=== PATIENT | male | born 1975 | race Caucasian/White ===

== ENCOUNTER 2018-08-25 14:05 | Emergency (ER) | payer MEDICAID, SELFPAY ==
[2018-08-25 14:06] VITALS: BP 107/68; PULSE 86; RESP 18; TEMP 37.2; O2SAT 99; BMI 23.8
--- NOTE | 2018-08-25 16:03 | ED.DCSUM_ITS ---
- ER Visit Summary Date of Service: 08/25/18 Chief Complaint: Back pain History of Present Illness: The patient is a 42 M with chronic back pain noticed that usually he has radiation in his posterior side of his leg and now he has some paresthesia anterior side. He has no abdominal pain no inguinal pain no groin pain no urinary symptoms he has no nausea vomiting. He has no bowel or bladder compromise. He has no saddle anesthesia. He is able to ambulate in fact ambulates and walks quite a bit. He just wants to make sure that there is no other problems. Physical Examination: Not appear in acute distress. Abdomen soft and nontender no guarding or rebound Moves all extremities without any difficulty or pain Patient has normal patellar and Achilles reflexes. He has normal plantar flexion of both feet and normal dorsiflexion of both toes. He has no suprapubic pain or mass. Normal sensation over the anterior posterior part of his leg. Skin does not show any obvious rashes or lesions, no trauma. Alert oriented ?3 with no gross focal deficit Emergency Department Course and Treatment: Anterior thigh paresthesias, I doubt this is meralgia paresthetica, he has not obese and his belt is quite loose, he has a history of sciatica but at this time there is no obvious neurological compromise. He has a benign exam and no red flags on history. He will be discharged with Flexeril per his request. Disposition: Discharge stable condition Impression: Back pain This note was generated with [employer] dictation software. It may contain incorrect words, spelling, and punctuation that were not noted in review of the chart prior to signing ED Disposition - Plan for ED Patient: Chief Complaint: Back Referrals: Care Physician,No Primary [Primary Care Provider] -
--- NOTE | 2018-08-25 16:11 | ED.DEP ---
ED Disposition - Plan for ED Patient: Disposition: Home or Assisted Living Chief Complaint: Back Instructions: ED Sprain Strain Lumbar Prescriptions: Cyclobenzaprine [Flexeril] 10 mg PO TID PRN #20 tab PRN Reason: Muscle Spasm Referrals: Care Physician,No Primary [Primary Care Provider] - 3-5 Days
[2018-08-25 16:26] VITALS: BP 108/77; PULSE 62; RESP 17; O2SAT 97
[2018-08-25] MEDS: Ketorolac 30 MG/ML Syringe IM (16:28)
== END 2018-08-25 16:28 | disposition home or self-care (01) ==
PROVIDERS: Emergency Provider Emergency Medicine
DX: M54.9 Dorsalgia, unspecified (principal); G89.29 Other chronic pain; Z72.0 Tobacco use
CPT/HCPCS: 96372; 99282

== ENCOUNTER 2019-02-09 11:07 | Emergency (ER) | payer MEDICAID, SELFPAY ==
[2019-02-09 11:08] VITALS: BP 124/68; PULSE 101; RESP 16; TEMP 36.8; O2SAT 94; BMI 22.9
--- NOTE | 2019-02-09 12:32 | ED.VIS.GEN ---
History of Present Illness Chief Complaint: Back Informant: Patient Onset: Yesterday Context: Gradual Onset Timing: Continuous Current Severity: Severe Maximum Severity: Severe Worsened by: sitting, sometimes walking Relieved by: certain positions Associated Symptoms: radiation down LLE. no bowel or bladder dysfunction Narrative: Patient states he has a long-standing history for years of low back pain with left-sided sciatica. When symptoms get worse, he sometimes comes to the emergency department, he feels that need today. No new symptoms. Sometimes some tingling down to his foot. No recent injury. No heavy lifting. Dates he was doing lots of walking recently. Symptoms gradually worsened yesterday and are still worse this morning. States he used to be an addict and wants no narcotics. Flexeril has not helped in the past. Tried Tylenol and ibuprofen without help. Prior similar symptoms: Yes - sciatica - Past Medical History (1) Chronic back pain Status: Chronic Past Medical History - Allergies and Home Meds Allergies/Adverse Reactions: Allergies tramadol HCl [From Ultram] Allergy (Verified 02/09/19 11:08) Rash meloxicam [From Mobic] Adverse Reaction (Verified 02/09/19 11:08) Nausea Penicillins Adverse Reaction (Verified 02/09/19 11:08) Nausea Primary Care Physician: Doctor,Your [STAFF PHYSICIAN] - 1 Week if not improving Surgical History: cholecystectomy, - - reports chest surgery 9-10 for a valve or something that did not close. Smoking Status: Current every day smoker Drugs: None - Family History Maternal Family History: Reports: Heart Disease Sibling Family History: Reports: - - 3 brothers had heart disease Review of Systems General: Denies: Chills, Fever Musculoskeletal: Reports: Back pain, Extremity Pain. Denies: Swelling Neurological: Reports: Parasthesia. Denies: Headache, Weakness Physical Exam Vital Signs/Narrative: Vital Signs Temp Pulse Resp BP Pulse Ox 02/09/19 11:08 98.2 F 101 H 16 124/68 H 94 Inital Vital Signs reviewed: Yes General: Well nourished, Well developed, No Acute Distress Head: Normocephalic, Atraumatic Back: Normal Inspection. Negative for: CVA tenderness, Spinal tenderness Extremities: Nontender, No edema, - - Ipsilateral straight leg raise while sitting back pain but no radicular symptoms. Negative contralateral straight leg raise. Skin: Normal color, No rash, No Trauma Neurological: Alert, Oriented x3, Cranial nerves II-XII grossly intact, Normal Strength, Normal Sensation, Normal DTR Psychological: Normal affect, Normal Mood Diagnostic/Tx/Re-eval - Medical Decision Making Patient states he used to be in pain management no longer is. He was on gabapentin and it did help some. I am willing to put him on a 2-week course until he follows up. We will also try a short course of prednisone, given injection of Toradol here. He is comfortable with this plan. Additionally, he states he saw Dr. Moralez with orthopedics in the past, and was told based on his MRI and exam that surgery would be an option. However at the time it was inconvenient. He states he has not followed up again and I recommend doing so when he is able. He agrees. ED Disposition - Plan for ED Patient: Disposition: Home or Assisted Living Diagnosis: Acute exacerbation of chronic low back pain Instructions: ED Sciatica Prescriptions: Prednisone [Deltasone] 40 mg PO DAILY #10 tab Gabapentin [Neurontin] 300 mg PO TID 14 Days #39 cap Referrals: Doctor,Your [STAFF PHYSICIAN] - 1 Week if not improving
[2019-02-09] MEDS: Ketorolac 60 MG/2 ML Vial IM (12:41)
[2019-02-09] MEDS: predniSONE 20 MG Tablet 40 MG PO (12:42)
== END 2019-02-09 12:59 | disposition home or self-care (01) ==
LOC: ED 12:39
PROVIDERS: Emergency Provider Emergency Medicine
DX: G89.29 Other chronic pain (principal); M54.5 Low back pain; F17.200 Nicotine dependence, unspecified, uncomplicated; Z90.49 Acquired absence of other specified parts of digestive tract
CPT/HCPCS: 96372; 99282

== ENCOUNTER 2021-06-06 20:16 | Observation (INO) | payer MEDICAID, SELFPAY ==
[2021-06-06 20:17] VITALS: BP 108/67; PULSE 74; RESP 16; TEMP 36.7; O2SAT 98; BMI 20.9
--- NOTE | 2021-06-06 20:56 | CM.ED ---
CONRAD Note Referral Source: [employer] Referral Reason: RAMP program SW met with patient. Patient hakeem that his drug of choice is ice but he did heroin last night. Patient said that he is currently linked with [facility]. Patient said that his last use was last night and he used 'not much heroin. SW educated patient on the Ramp Program that it is a detox program. SW explained that belongings would be secured and locked and patient would not be able to have access to his phone and have no visitors. CONRAD explained that [facility] will follow up with patient. No further issues or needs at this time. Deandra TOVAR
[2021-06-06] MEDS: LORazepam 1 MG Tablet PO (21:58)
--- NOTE | 2021-06-06 22:12 | CM.ED ---
Addendum entered by Deandra Amaro 06/06/21 22:26: Addendum: Patient reports that he last used the previous night and used heroin. When asked how much heroin he used he said not much. Deandra TOVAR Original Note: CONRAD Note Referral Source: Substance Abuse Referral Reason: Substance Abuse Sw met with patient. He indicated his drug of choice is ice. He reports use of heroin also. He said that his last use was the previous night. Patient reports he is linked with [facility]. SW reviewed the rules of the RAMP program which include no phones, no visitors and items locked. CONRAD also noted that patient will need to sign a contract for the RAMP program. Patient verbalized understanding and agreement. He indicated he is in agreement with rules regarding the RAMP program. CONRAD called [facility] Treatment Navigator and spoke to Lela and made referral for patient. [facility] will follow up on 06/07/21 Plan: Ramp Program Deandra TOVAR
[2021-06-06 22:31] LABS: ALB/GLOB Ratio 0.8 RATIO (0.9-2.4); AST(SGOT) 14 U/L (15-37); Alanine Aminotransfer ALT/SGPT 21 U/L (16-61); Albumin, Serum 3.2 g/dL (3.2-5.0); Alkaline Phosphatase 104 U/L (45-117); Anion Gap 6 (5-15); BUN 17 mg/dL (7-18); BUN/Creat Ratio 21.5 RATIO (10-20); Calcium,Total 8.3 mg/dL (8.5-10.1); Chloride 108 mmol/L (98-107); Creatinine, Serum 0.79 mg/dL (0.70-1.30); EST Glomerular Filtration Rate 113 mL/min (>60); Est Glom Filt Rate - Afr Amer 137 mL/min (>60); Estimated Creatinine Clearance 117.97 ml/min; Globulin 3.8 g/dL (2.2-4.2); Glucose 103 mg/dL (74-106); Potassium 3.7 mmol/L (3.5-5.1); Sodium Level 138 mmol/L (136-145)
--- NOTE | 2021-06-06 22:39 | EDS_ITS ---
HPI History of Present Illness Chief Complaint: Substance Abuse Informant: patient Narrative Narrative: 45-year-old male presenting requesting detox from heroin. Patient also admits to methamphetamine use. He injects into his hands. His last use was yesterday. He is unsure how much he uses but has been using daily for several months. Denies other complaints. Prior similar symptoms: Yes Recent Illness/Hospitalization: No PFSH PFSH Medical History (Updated 06/06/21 @ 22:[address] Cathy Sullivan MD) Chronic pain Substance use Home Medications prednisone 40 mg PO DAILY #10 tab 02/09/19 [Rx Last Taken Unknown] Allergy/AdvReac Type Severity Reaction Status Date / Time tramadol HCl [From Ultram] Allergy Rash Verified 06/06/21 20:17 meloxicam [From Mobic] AdvReac Nausea Verified 06/06/21 20:17 Penicillins AdvReac Nausea Verified 06/06/21 20:17 Social History Smoking Status: Current every day smoker tobacco type: cigarettes ROS ROS ED Constitutional Constitutional ED: Denies fever(s) Eyes Eyes: Denies change in vision ENT ENT ED: Denies rhinorrhea or sore throat Cardiovascular Cardiovascular: Denies chest pain or palpitations Respiratory/Chest Respiratory/Chest: Denies cough or dyspnea Gastrointestinal Gastrointestinal: Denies abdominal pain, diarrhea, nausea or vomiting Genitourinary Genitourinary ED: Denies dysuria Musculoskeletal Musculoskeletal: Denies myalgias Integumentary Denies rash Neurologic Neurologic: Denies headache(s) Psychiatric Psychiatric: Denies suicidal thoughts EXAM Physical Exam Const Vital Signs: 06/06/21 20:17 Temperature 98.0 F Temperature Source Temporal Pulse Rate 74 Respiratory Rate 16 Blood Pressure 108/67 Blood Pressure Mean 80 Pulse Ox 98 Oxygen Delivery Method Room Air Positive well nourished and well developed General Appearance ED: well developed HEENT Reports normocephalic and head/scalp atraumatic Eyes PERRL and EOMs intact bilaterally Neck supple General: Negative for tenderness Chest Wall inspection of chest normal Resp normal respiratory effort and clear to auscultation bilaterally Cardio regular rate and regular rhythm GI non-tender and non-distended Palpation: soft; Negative for guarding or rebound tenderness present no CVA tenderness Extremity normal to inspection Neuro oriented x3 Sensorium / Orientation: alert Psych mental status grossly normal MDM MDM MDM Narrative Medical decision making narrative: Patient felt shaky and was given Ativan x1 in the emergency department. Will discuss with hospitalist for admission. Lab Data Attestation: I reviewed the patient's lab results. Labs: Laboratory Results - last 24 hr 06/06/21 06/06/21 21:35 21:35 Sodium 138 Potassium 3.7 Chloride 108 H Carbon Dioxide 24.0 Anion Gap 6 BUN 17 Creatinine 0.79 Estim Creat Clear Calc 117.97 Est GFR (MDRD) Af Amer 137 Est GFR (MDRD) Non-Af 113 BUN/Creatinine Ratio 21.5 H Glucose 103 Calcium 8.3 L Total Bilirubin 0.20 AST 14 L ALT 21 Alkaline Phosphatase 104 Total Protein 7.0 Albumin 3.2 Globulin 3.8 Albumin/Globulin Ratio 0.8 L Ethyl Alcohol 4.0 Discharge Plan Triage Chief Complaint: Substance Abuse ED Provider: Cathy Sullivan Dx/Rx/DC Orders Clinical Impression: Polysubstance abuse Prescriptions: No Action prednisone 20 MG tablet 40 mg PO DAILY Qty: 10 RF: 0 Primary Care Provider: David Harrison Referrals: David Harrison MD [Primary Care Provider] - Disposition Disposition: Acute Care Hospital [facility]
--- NOTE | 2021-06-06 23:14 | HP.PCM_ITS ---
Documented by User: Valeria Weathers NP-C 06/06/21 23:20 HPI - General General Date of Admission: 06/06/21 HPI Narrative STANFORD KING, is a 45 M who presents with desire to detox from opioids and methamphetamines. Patient states that he uses heroin daily and that he has a history of IV drug use however he currently snorts. Patient states that his last use was yesterday and is visibly tremorous. Patient also reports chills and nausea. Patient denies fever, chest pain, shortness of breath, diarrhea, vomiting, constipation. [facility] Medical History (Updated 06/06/21 @ 23:18 by Valeria Weathers NP-C) Chronic pain Substance use Home Medications prednisone 40 mg PO DAILY #10 tab 02/09/19 [Rx Last Taken Unknown] Allergy/AdvReac Type Severity Reaction Status Date / Time tramadol HCl [From Ultram] Allergy Rash Verified 06/06/21 20:17 meloxicam [From Mobic] AdvReac Nausea Verified 06/06/21 20:17 Penicillins AdvReac Nausea Verified 06/06/21 20:17 Family History (Updated 06/06/21 @ 23:16 by Valeria Weathers NP-C) Mother Hypertension Alcoholism Father Hypertension Prostate cancer no surgical history Social History (Updated 06/06/21 @ 23:16 by Valeria Weathers NP-C) Smoking Status: Current every day smoker tobacco type: cigarettes alcohol intake: former substance use type: heroin and methamphetamine ROS Constitutional Constitutional: Reports chills; Denies anorexia, change in weight, fatigue, fever(s) or weakness Cardiovascular Cardiovascular: Denies chest pain, edema or palpitations Respiratory/Chest Respiratory/Chest: Denies cough, shortness of breath at rest or shortness of breath with exertion Gastrointestinal Gastrointestinal: Reports nausea; Denies abdominal pain, constipation, diarrhea or vomiting Genitourinary Genitourinary: Denies dysuria Musculoskeletal Musculoskeletal: Denies back pain, extremity pain, joint pain or joint stiffness Integumentary Integumentary: Denies dry skin Neurologic Neurologic: Denies abnormal gait, abnormal speech, confusion, dizziness or focal weakness Psychiatric Psychiatric: Denies anxiety or depression Endocrine Endocrinology: Denies change in body appearance Vital Signs Vital Signs Vital Signs: 06/06/21 20:17 Temperature 98.0 F Temperature Source Temporal Pulse Rate 74 Respiratory Rate 16 Blood Pressure 108/67 Blood Pressure Mean 80 Pulse Ox 98 Oxygen Delivery Method Room Air Weight Weight: 154 lb 1.65 oz Body Mass Index (BMI) 20.9 Physical Exam Const alert and oriented x3 General Appearance: cooperative HEENT normocephalic and head/scalp atraumatic Eyes conjunctivae normal and no scleral icterus Neck supple and no JVD General: trachea midline Resp normal respiratory effort, normal air movement and clear to auscultation bilaterally Cardio regular rate, regular rhythm, S1 normal heart sound and S2 normal heart sound GI normal to inspection, nondistended, normoactive bowel sounds, soft to palpation and non-tender Extremity normal capillary refill and no clubbing, cyanosis or edema Skin General Skin Exam: no breakdown and turgor normal Lesions: no lesions Rashes: no rashes Neuro no focal motor deficits and no sensory deficits noted Speech: speech normal Motor Exam: general weakness Psych thought process normal and cooperative Appearance: appropriate Mood & Affect: flat affect Results Lab / Micro Data Result Diagrams: 06/06/21 21:35 06/06/21 21:35 Labs: Laboratory Results - last 24 hr 06/06/21 21:35: Sodium 138, Potassium 3.7, Chloride 108 H, Carbon Dioxide 24.0, Anion Gap 6, BUN 17, Creatinine 0.79, Estim Creat Clear Calc 117.97, Est GFR (MDRD) Af Amer 137, Est GFR (MDRD) Non-Af 113, BUN/Creatinine Ratio 21.5 H, Glucose 103, Calcium 8.3 L, Total Bilirubin 0.20, AST 14 L, ALT 21, Alkaline Phosphatase 104, Total Protein 7.0, Albumin 3.2, Globulin 3.8, Albumin/Globulin Ratio 0.8 L 06/06/21 21:35: Ethyl Alcohol 4.0 Assessment & Plan Assessment/Plan (1) Polysubstance abuse: PLAN: 1. Polysubstance abuse -Admit to medical surgical as part of ramp program -Buprenorphine taper ordered along with supportive medications -Case management consulted for coordination with 180 for outpatient follow-up -Vital signs per protocol -CBC and BMP in a.m. -Regular diet ordered 2. Tobacco abuse -Inpatient smoking cessation ordered -Nicotine patch ordered DVT prophylaxis-no pharmacological prophylaxis indicated, encourage ambulation This patient was seen by AKIN Lewis under the supervision of Dr. Shane ramires Documented by User: Dr. Ruben Arteaga MD 06/07/21 00:18 HPI - General General Date of Admission: 06/06/21 [facility] Medical History (Updated 06/06/21 @ 23:18 by Valeria Weahters NP-C) Chronic pain Substance use Home Medications prednisone 40 mg PO DAILY #10 tab 02/09/19 [Rx Last Taken Unknown] Allergy/AdvReac Type Severity Reaction Status Date / Time tramadol HCl [From Ultram] Allergy Rash Verified 06/06/21 20:17 meloxicam [From Mobic] AdvReac Nausea Verified 06/06/21 20:17 Penicillins AdvReac Nausea Verified 06/06/21 20:17 Family History (Updated 06/06/21 @ 23:16 by MIAN LewisC) Mother Hypertension Alcoholism Father Hypertension Prostate cancer Social History (Updated 06/06/21 @ 23:16 by Valeria Weathers NP-C) Smoking Status: Current every day smoker tobacco type: cigarettes alcohol intake: former substance use type: heroin and methamphetamine Results Lab / Micro Data Result Diagrams: 06/06/21 21:35 06/06/21 21:35 Charges/Coding Addendum Addendum: Patient was seen and examined independently. I agree with assessment and plan by MIAN LewisC Patient is a 45-year-old male with a significant history of tobacco abuse; and drug abuse who is here for detoxification. Patient drug of choice is heroin and methamphetamine. His snorts about 20 g of heroin per day. Reportedly he began using about 3 months ago. Last time he used was the night before his presentation. He reports withdrawal symptoms of restless leg; muscle aches; nausea; and fatigue. He shoots methamphetamine. Last time he used methamphetamine was about a week ago. He shoots about $20 of methamphetamine per day. Reportedly he began using methamphetamine about 4 months ago. Physical exam: General: Well-nourished, well-developed, no acute distress Head: Normocephalic, atraumatic, no tenderness Eyes: PERRLA, EOMI ENT, no trauma, moist mucous membranes, no rhinorrhea Neck: Nontender, full range of motion, no spinal tenderness, deformities, step- off CVS: Regular rate and rhythm Respiratory no acute distress, clear to auscultation bilaterally, chest wall nontender, no wheezing Abdomen: Soft, nontender, nondistended, normal bowel sounds, no masses : Deferred Extremities: Nontender full range of motion, no trauma Skin: Normal color, no trauma, abrasions Neuro: Alert, oriented, cranial nerves II through XII grossly intact. The patient is a 45 year old M with a significant history drug abuse; and tobacco abuse who presents emergency department with help with detoxification Opioid dependence and withdrawal Patient be started on Subutex and other adjunctive medications: Gabapentin as needed; dicyclomine as needed; Vistaril as needed; methocarbamol as needed; clonidine as needed; Imodium as needed; trazodone as needed and Zofran as needed. Monitor COWS and CINA score Methamphetamine abuse Counseled Clinical monitoring. Tobacco abuse Counseled Nicotine patch prescribed. DVT prophylaxis Low risk Encourage to ambulate Visit Charges Inpatient E&M: 07775 Init Hosp L3
[2021-06-06 23:58] VITALS: BP 128/83; PULSE 83; RESP 18; TEMP 36.2; O2SAT 100
[2021-06-07 00:22] VITALS: BP 121/85; PULSE 75; RESP 18; TEMP 36.6; O2SAT 100
[2021-06-07 00:25] VITALS: BMI 20.8
[2021-06-07 01:08] LABS: Amphetamine Urine VISTA POSITIVE (<1000 ng/mL); Barbiturate Urine VISTA NEGATIVE (< 200 ng/mL); Benzodiazepine Urine VISTA NEGATIVE (< 200 ng/mL); Cocaine Urine VISTA NEGATIVE (< 300 ng/mL); Ecstacy Urine VISTA NEGATIVE (< 500 ng/mL); Methadone Urine VISTA NEGATIVE (< 300 ng/mL); PCP Urine VISTA NEGATIVE (< 25 ng/mL); THC Urine VISTA NEGATIVE (< 50 ng/mL); Vista UDS pH Range 7
[2021-06-07] MEDS: hydrOXYzine PAM 25 MG Capsule 50 MG PO ×3 (01:56→22:28)
[2021-06-07] MEDS: Dicyclomine 10 MG Capsule 20 MG PO (01:56)
[2021-06-07] MEDS: cloNIDine HCl 0.1 MG Tablet PO ×2 (01:56→22:28)
[2021-06-07] MEDS: Methocarbamol 750 MG Tablet 1500 MG PO ×3 (01:56→22:29)
[2021-06-07] MEDS: Buprenorphine HCl 2 MG TAB.SUBL SL ×3 (01:56→17:41)
[2021-06-07] MEDS: Gabapentin 300 MG Capsule PO (09:13)
--- NOTE | 2021-06-07 10:32 | PN.HOSP_ITS ---
Subjective Subjective Doing well, no issues overnight. CINA of a 6 this morning Objective Data Objective Data Vital Signs: Vital Signs Temp Pulse Resp BP Pulse Ox 97.8 F 75 18 121/85 H 100 06/07/21 00:22 06/07/21 00:22 06/07/21 00:22 06/07/21 00:22 06/07/21 00:22 Oxygen Delivery Method Room Air Weight: 154 lb 1.65 oz Body Mass Index (BMI) 20.8 Intake & Output: Intake and Output for Last 24 Hours 06/06/21 06/07/21 06/08/21 03:59 03:59 03:59 Intake Total 350 / 350 Output Total 875 / 875 Balance -525 / -525 Lab / Micro Data Result Diagrams: 06/06/21 21:35 06/06/21 21:35 Labs: Laboratory Results - last 24 hr 06/06/21 21:35: Sodium 138, Potassium 3.7, Chloride 108 H, Carbon Dioxide 24.0, Anion Gap 6, BUN 17, Creatinine 0.79, Estim Creat Clear Calc 117.97, Est GFR (MDRD) Af Amer 137, Est GFR (MDRD) Non-Af 113, BUN/Creatinine Ratio 21.5 H, Glucose 103, Calcium 8.3 L, Total Bilirubin 0.20, AST 14 L, ALT 21, Alkaline Phosphatase 104, Total Protein 7.0, Albumin 3.2, Globulin 3.8, Albumin/Globulin Ratio 0.8 L 06/06/21 21:35: Ethyl Alcohol 4.0 06/07/21 00:51: Urine Opiates Screen NEGATIVE, Urine Methadone Screen NEGATIVE, Ur Barbiturates Screen NEGATIVE, Ur Phencyclidine Scrn NEGATIVE, Ur Amphetamines Screen POSITIVE H, U Methamphetamin-MDMA NEGATIVE, U Benzodiazepines Scrn NEGAT SAMUEL, Urine Cocaine Screen NEGATIVE, U Cannabinoids Screen NEGATIVE, Ur Drug Screen Comment Physical Exam Const alert, oriented x3 and no apparent distress General Appearance: cooperative HEENT normocephalic and moist oral mucous membranes Eyes PERRL, EOMs intact bilaterally and conjunctivae normal Neck supple and no JVD Resp normal respiratory effort, no retractions, no use of accessory muscles and clear to auscultation bilaterally Auscultation: Negative for crackles, rales, rhonchi or wheezes Cardio regular rate, regular rhythm, S1 normal heart sound, S2 normal heart sound and no murmurs GI soft to palpation, non-tender and non-distended; Negative for hepatosplenomegaly Extremity no clubbing, cyanosis or edema Skin no rashes or lesions noted Neuro no focal motor deficits and no sensory deficits noted Psych affect normal Appearance: appropriate Assessment & Plan Assessment/Plan (1) Polysubstance abuse: PLAN: 1. Opiate withdrawal with polysubstance abuse with methamphetamines/tobacco abuse -Continue with the opiate withdrawal protocol -Follow-up with 180 as an outpatient -Continue with nicotine patch -Counseled on cessation DVT: Ambulation Charges/Coding Visit Charges Inpatient E&M: 78103 Subs Hosp L2
[2021-06-07 13:14] VITALS: BP 106/73; PULSE 88; RESP 16; TEMP 37; O2SAT 98
[2021-06-07 17:12] VITALS: BP 115/75; PULSE 70; RESP 18; TEMP 36.8; O2SAT 98
[2021-06-07 22:18] VITALS: BP 110/77; PULSE 78; RESP 18; TEMP 36.5; O2SAT 94
[2021-06-07] MEDS: traZODone 100 MG Tablet PO (22:28)
[2021-06-07] MEDS: Acetaminophen 325 MG Tablet 650 MG PO (22:29)
[2021-06-08 02:13] VITALS: BP 114/58; PULSE 73; RESP 16; TEMP 37.4; O2SAT 94
[2021-06-08] MEDS: Buprenorphine HCl 2 MG TAB.SUBL SL ×3 (02:16→17:44)
[2021-06-08 07:57] VITALS: O2SAT 94
--- NOTE | 2021-06-08 09:57 | ADDICTION ---
This parts data writer met with PT to conduct ASAM, MSE, DUDIT assessments and to plan for d/c. All assessments completed. PT plans to f/u with his counselor, Isa, at [facility] post d/c and refused coordination noting that I can do it myself. PT did not report any need for transportation assistance.
[2021-06-08] MEDS: Methocarbamol 750 MG Tablet 1500 MG PO ×2 (10:23→20:26)
[2021-06-08] MEDS: Gabapentin 300 MG Capsule PO ×2 (10:23→17:53)
[2021-06-08 10:30] VITALS: BP 92/66; PULSE 78; RESP 16; TEMP 36.6; O2SAT 100
--- NOTE | 2021-06-08 10:46 | PCM.PN.HOSP ---
Subjective Subjective No issues overnight. Cina scores of 1 Objective Data Objective Data Vital Signs: Vital Signs Temp Pulse Resp BP Pulse Ox 97.9 F 78 16 92/66 100 06/08/21 10:30 06/08/21 10:30 06/08/21 10:30 06/08/21 10:30 06/08/21 10:30 Oxygen Delivery Method Room Air Weight: 154 lb 1.65 oz Body Mass Index (BMI) 20.8 Intake & Output: Intake and Output for Last 24 Hours 06/07/21 06/08/21 06/09/21 03:59 03:59 03:59 Intake Total 2650 / 2650 Output Total 875 / 875 Balance 1775 / 1775 Lab / Micro Data Result Diagrams: 06/06/21 21:35 06/06/21 21:35 Physical Exam Const alert, oriented x3 and no apparent distress General Appearance: cooperative HEENT normocephalic and moist oral mucous membranes Eyes PERRL, EOMs intact bilaterally and conjunctivae normal Neck supple and no JVD Resp normal respiratory effort, no retractions, no use of accessory muscles and clear to auscultation bilaterally Auscultation: Negative for crackles, rales, rhonchi or wheezes Cardio regular rate, regular rhythm, S1 normal heart sound, S2 normal heart sound and no murmurs GI soft to palpation, non-tender and non-distended; Negative for hepatosplenomegaly Extremity no clubbing, cyanosis or edema Skin no rashes or lesions noted Neuro no focal motor deficits and no sensory deficits noted Psych affect normal Appearance: appropriate Assessment & Plan Assessment/Plan (1) Polysubstance abuse: PLAN: 1. Opiate withdrawal with polysubstance abuse with methamphetamines/tobacco abuse -Continue with the opiate withdrawal protocol -Follow-up with 180 as an outpatient -Continue with nicotine patch -Counseled on cessation DVT: Ambulation Charges/Coding Visit Charges Inpatient E&M: 31642 Subs Hosp L2
[2021-06-08] MEDS: Ibuprofen 400 MG Tablet PO (13:52)
[2021-06-08 13:56] VITALS: BP 97/67; PULSE 84; RESP 16; TEMP 36.8; O2SAT 94
[2021-06-08] MEDS: traZODone 100 MG Tablet PO (20:27)
[2021-06-08 20:36] VITALS: BP 112/67; PULSE 87; RESP 16; TEMP 37.4; O2SAT 96
[2021-06-09] MEDS: Buprenorphine HCl 2 MG TAB.SUBL SL (01:56)
[2021-06-09] MEDS: Ibuprofen 400 MG Tablet PO ×2 (01:58→10:36)
[2021-06-09 02:04] VITALS: BP 107/66; PULSE 83; RESP 16; TEMP 36.8; O2SAT 98
--- NOTE | 2021-06-09 07:19 | PCM.DC ---
Discharge Instructions Diet Discharge Diet: No restrictions Activity Discharge Activity: Return to Normal Activity Dressing / Incision Call your doctor if you observe: Fever of 101 or Higher, Shortness of breath, Dizziness, Swelling in the ankles, Chest pain and Increased palpitations (irregular heartbeat) Follow Up Care Test Results: Test results from this visit will be discussed in further detail at your follow-up appointment, if applicable. Discharge Plan Admission Admit Date/Time: 06/06/21 23:12 Attending Provider: Morales Haque Primary Care Provider: David Harrison Discharge Orders/Prescriptions Prescriptions: Discontinued prednisone 20 MG tablet 40 mg PO DAILY Qty: 10 RF: 0 Referrals / Follow Up: David Harrison MD [Primary Care Provider] - Within 2 Weeks Disposition Disposition (needs filled in before D/C Order can be placed): Home, Self Care
--- NOTE | 2021-06-09 07:22 | PCM.DC.SUM ---
Providers Date of Admission: 06/06/21 Primary Care Physician: David Harrison MD Reason For Visit: OPIOID DETOX Diagnosis Discharge Diagnosis (1) Polysubstance abuse: Status: Acute Code(s): F19.10 - Other psychoactive substance abuse, uncomplicated Hospital Course Operations None Procedures None Summary of Care Provided Minutes Spent on Discharge: 35 Hospital Course: Per HPI: STANFORD KING, is a 45 M who presents with desire to detox from opioids and methamphetamines. Patient states that he uses heroin daily and that he has a history of IV drug use however he currently snorts. Patient states that his last use was yesterday and is visibly tremorous. Patient also reports chills and nausea. Patient denies fever, chest pain, shortness of breath, diarrhea, vomiting, constipation. Hospital course: 1. Opiate withdrawal with polysubstance abuse with methamphetamines/tobacco [id number]-old male presented to the hospital requesting detox from opiates methamphetamines. He uses daily heroin and was placed on the Suboxone taper. He has tolerated this very well and met with [facility] yesterday and wants to continue to follow-up with his counselor at [facility]. He does not want to go to residential treatment and he did not need any other assistance from them other than the appointment as an outpatient. I discussed with him the plan for discharge today and he expressed understanding of the risk and benefits of going home and would like to go home today. Physical Exam Const alert, oriented x3 and no apparent distress General Appearance: cooperative HEENT normocephalic, head/scalp atraumatic and moist oral mucous membranes Eyes PERRL, EOMs intact bilaterally and conjunctivae normal Neck supple and no JVD Resp normal respiratory effort, no retractions, no use of accessory muscles and clear to auscultation bilaterally Auscultation: Negative for crackles, rales, rhonchi or wheezes Cardio regular rate, regular rhythm, S1 normal heart sound, S2 normal heart sound and no murmurs GI soft to palpation, non-tender and non-distended; Negative for hepatosplenomegaly Extremity no clubbing, cyanosis or edema Skin no rashes or lesions noted Neuro no focal motor deficits and no sensory deficits noted Psych affect normal Appearance: appropriate Weight / BMI Weight Weight: 154 lb 1.65 oz Body Mass Index (BMI) 20.8 ABG / Lab / Microbiology Data Result Diagrams: 06/06/21 21:35 06/06/21 21:35 D/C Instructions Discharge Diet: No restrictions Call your doctor if you observe: Fever of 101 or Higher, Shortness of breath, Dizziness, Swelling in the ankles, Chest pain and Increased palpitations (irregular heartbeat) Meaningful Use Info Meaningful Use Diagnoses (Choose all that apply): None applicable Discharge Plan Admission Admit Date/Time: 06/06/21 23:12 Attending Provider: Morales Haque Primary Care Provider: David Harrison Discharge Orders/Prescriptions Prescriptions: Discontinued prednisone 20 MG tablet 40 mg PO DAILY Qty: 10 RF: 0 Referrals / Follow Up: David Harrison MD [Primary Care Provider] - Within 2 Weeks Disposition Disposition (needs filled in before D/C Order can be placed): Home, Self Care Charges/Coding Visit Charges Inpatient E&M: 91850 Disch Hosp
[2021-06-09 07:54] VITALS: O2SAT 94
[2021-06-09 10:00] VITALS: BP 98/68; PULSE 80; RESP 16; TEMP 36.7; O2SAT 98
== END 2021-06-09 10:42 | disposition home or self-care (01) ==
LOC: ED 22:41 → MS3 06-07 00:11
PROVIDERS: Admitting Provider Hospitalist; Emergency Provider Emergency Medicine; PCP Family Medicine; Visit Provider Family Medicine
DX: F11.23 Opioid dependence with withdrawal (principal); F15.90 Other stimulant use, unspecified, uncomplicated; F17.210 Nicotine dependence, cigarettes, uncomplicated
CPT/HCPCS: 80053; 80307; 82077; 99283; H0012

== ENCOUNTER 2021-07-22 20:36 | Emergency (ER) | payer MEDICAID, SELFPAY ==
[2021-07-22 20:37] VITALS: BP 141/99; PULSE 111; RESP 20; TEMP 36.7; O2SAT 98; BMI 21.0
--- NOTE | 2021-07-22 20:44 | ED.RN ---
PT REQUESTING TO LEAVE. DR KRISHNA NOTIFIED
--- NOTE | 2021-07-22 20:46 | ED.RN ---
PT STATES I'M LEAVING. PT WALKED OUT OF THE DEPARTMENT
== END 2021-07-22 20:46 ==
LOC: ED 21:14
PROVIDERS: PCP Family Medicine
DX: T65.91XA Toxic effect of unspecified substance, accidental (unintentional), initial encounter (principal); Y92.9 Unspecified place or not applicable
CPT/HCPCS: 99283

== ENCOUNTER 2021-10-01 01:18 | Emergency (ER) | payer MEDICAID, SELFPAY ==
[2021-10-01 01:18] VITALS: BP 137/99; PULSE 84; RESP 16; TEMP 37.2; O2SAT 98; BMI 21.7
--- NOTE | 2021-10-01 01:38 | EX.ED.DYSGE1 ---
HPI History of Present Illness Chief Complaint: Overdose Narrative Narrative: Patient is a 45-year-old male with past medical history of drug abuse. Reportedly he did methamphetamines today around 1 or 2 PM at which time he inadvertently overdose and EMS was called. This evening reportedly patient overdosed once again and EMS was called secondary to this. EMS states when they arrived patient was breathing but was obtunded and they gave him Narcan and his symptoms resolved. Upon arrival to the hospital patient is awake and alert and he admits to the methamphetamine from earlier today but denies any narcotic use. He states otherwise he feels tired at this time but has no homicidal or suicidal ideation and states that his drug use today was simply an attempt to get high. [facility] Medical History Chronic pain Smoker Substance use Home Medications NK 07/22/21 [History Last Taken Unknown] Allergy/AdvReac Type Severity Reaction Status Date / Time Penicillins Allergy PT UNSURE Verified 10/01/21 01:24 OF REACTION tramadol HCl [From Ultram] Allergy Rash Verified 10/01/21 01:24 meloxicam [From Mobic] AdvReac Nausea Verified 10/01/21 01:24 Family History (Updated 06/06/21 @ 23:16 by AKIN Lewis) Mother Hypertension Alcoholism Father Hypertension Prostate cancer Social History (Updated 06/06/21 @ 23:16 by Valeria Weathers NP-C) Smoking Status: Current every day smoker tobacco type: cigarettes alcohol intake: former substance use type: heroin and methamphetamine ROS ROS ED Constitutional Constitutional ED: Denies chills or fever(s) ENT ENT ED: Denies sore throat Cardiovascular Cardiovascular: Denies chest pain Respiratory/Chest Respiratory/Chest: Denies cough or dyspnea Gastrointestinal Gastrointestinal: Denies abdominal pain, diarrhea, nausea or vomiting Genitourinary Genitourinary ED: Denies dysuria Musculoskeletal Musculoskeletal: Denies myalgias Integumentary Denies rash Neurologic Neurologic: Denies headache(s) Psychiatric Psychiatric: Denies suicidal ideation or suicidal thoughts Hematologic/Lymphatic Hematologic/Lymphatic: Denies easy bleeding or easy bruising EXAM Physical Exam Const Vital Signs: 10/01/21 01:18 Temperature 99 F Temperature Source Temporal Pulse Rate 84 Respiratory Rate 16 Blood Pressure 137/99 H Blood Pressure Mean 111 Pulse Ox 98 Oxygen Delivery Method Room Air Positive well nourished and well developed General Appearance ED: well developed HEENT Reports moist mucous membranes HEENT Narrative: No tongue or cheek biting noted multiple dental caries noted consistent with methamphetamine use Eyes EOMs intact bilaterally Eyes Narrative: Pupils are midpoint and slightly sluggish to respond Neck supple Resp normal respiratory effort and clear to auscultation bilaterally Cardio regular rhythm Rate: tachycardic GI non-tender and non-distended GI Narrative: Bowel sounds are hypoactive Palpation: soft Extremity normal to inspection Neuro oriented x3 and CN's II-XII intact bilaterally Sensorium / Orientation: alert Psych mental status grossly normal Psych Narrative: No homicidal or suicidal ideation Skin no rashes or lesions noted MDM MDM MDM Narrative Medical decision making narrative: Patient presented to the ER awake and alert in no acute distress. His history and report of symptoms resolved with Narcan is consistent with an opioid overdose. He denied any homicidal or suicidal ideation. We discussed watching the patient for 30 minutes to an hour to make sure that once the Narcan wore off he would not relapse and return to altered mental status with difficulty breathing. Patient states he does not want to stay in the hospital any longer and he feels perfectly fine and with this decided to leave the hospital Discharge Plan Triage Chief Complaint: Overdose ED Provider: Israel Hamilton Dx/Rx/DC Orders Clinical Impression: Opioid overdose Instructions: ED Overdose, Opiate Prescriptions: No Action NK RF: 0 Primary Care Provider: David Harrison Referrals: David Harrison MD [Primary Care Provider] - Disposition Disposition: Elopement
[2021-10-01] MEDS: Acetaminophen 500 MG Tablet 1000 MG PO (01:39)
--- NOTE | 2021-10-01 01:39 | ED.RN ---
PT TOOK THE TYLENOL AND STATED HE WAS HUNGRY AND TIRED AND GOING HOME. EXPLAINED HE COULD GO HOME AND THE NARCAN WOULD WEAR OFF AND HE WOULD STOP BREATHING AND . PT STATES HE UNDERSTOOD THAT BUT HE WAS GOING HOME. PT CONTINUED TO DENY USING DRUG AND FEELS THAT NONE OF THIS WAS MAKING [place] SENSE. PHYSICIAN MADE AWARE AND PT TALKED WITH PHYSICIAN AND AGAIN DECIDED WAS LEAVING REGARDLESS TO RISK OF .
== END 2021-10-01 01:50 | disposition left against medical advice (07) ==
LOC: ED 01:48
PROVIDERS: Emergency Provider Emergency Medicine; PCP Family Medicine
DX: T40.2X1A Poisoning by other opioids, accidental (unintentional), initial encounter (principal); F17.210 Nicotine dependence, cigarettes, uncomplicated; G89.29 Other chronic pain; Z79.1 Long term (current) use of non-steroidal anti-inflammatories (NSAID)
CPT/HCPCS: 99283

== ENCOUNTER 2021-12-29 12:05 | Emergency (ER) | payer MEDICAID, SELFPAY ==
[2021-12-29 12:06] VITALS: BP 131/102; PULSE 107; RESP 15; TEMP 36.9; BMI 20.8
[2021-12-29 12:10] VITALS: BP 131/102; PULSE 105; RESP 16; O2SAT 97
--- NOTE | 2021-12-29 12:26 | EKG12_ITS ---
Test Reason : OVERDOSE Blood Pressure : / mmHG Vent. Rate : 092 BPM Atrial Rate : 092 BPM P-R Int : 098 ms QRS Dur : 102 ms QT Int : 406 ms P-R-T Axes : 076 042 045 degrees QTc Int : 502 ms Sinus rhythm with sinus arrhythmia with short CO Incomplete right bundle branch block Prolonged QT Abnormal ECG Confirmed by MORENA OSORIO, BETITO ([id number]), art editor ROBERTH WALLACE ([id number]) on 01/02/2022 6:56:36 AM Referred By: EDIS Confirmed By:BETITO BERG MD
--- NOTE | 2021-12-29 12:27 | EX.ED.DYSGE1 ---
HPI History of Present Illness Chief Complaint: Overdose Narrative Narrative: Patient presents via EMS with possible overdose. History and physical is limited secondary to patient's condition. He is not forthcoming with some of his answers/responses and is mumbling. It was reported by EMS, that he was found in the bathroom by his sister unresponsive. He states that he was in the bathroom trying to take Aleve for his back pain. He admitted to the RN that he took possibly methamphetamines. When I asked him if he had ingested other substances he states I do not know. He appears restless and mildly agitated. PFSH PFSH Medical History Chronic pain Smoker Substance use Home Medications NK 07/22/21 [History Last Taken Unknown] Allergy/AdvReac Type Severity Reaction Status Date / Time Penicillins Allergy PT UNSURE Verified 10/01/21 01:24 OF REACTION tramadol HCl [From Ultram] Allergy Rash Verified 10/01/21 01:24 meloxicam [From Mobic] AdvReac Nausea Verified 10/01/21 01:24 Family History Mother Hypertension Alcoholism Father Hypertension Prostate cancer Social History Smoking Status: Current every day smoker tobacco type: cigarettes alcohol intake: former substance use type: heroin and methamphetamine ROS ROS ED ROS Narrative Unable to obtain fully secondary to patient being uncooperative/mental status Review of Systems ROS Unobtainable: due to mental status EXAM Physical Exam Narrative Exam Narrative: Afebrile. Vital signs noted. HEENT: Normocephalic. Atraumatic. PERRL, EOMI. Neck soft and supple. No point tenderness or step off. Cardiovascular: Positive tachycardia no murmurs, rubs, or gallops appreciated. Respiratory: No tachypnea. Lungs clear to auscultation bilaterally. Gastrointestinal: Abdomen soft, nontender, with normoactive bowel sounds. No rebound or guarding. Neurological: Awake. Alert. Nonfocal, nonlateralizing. Skin: No rash. Normal color. No pallor. Musculoskeletal: No pedal edema. Full range of motion extremities. Psychiatric: Restless, agitated, writhing around on the bed. Const Vital Signs: 12/29/21 12:06 12/29/21 12:10 12/29/21 13:05 Temperature 98.4 F Temperature Source Temporal Pulse Rate 107 H 105 H 78 Respiratory Rate 15 16 18 Blood Pressure 131/102 H 131/102 H 126/78 H Blood Pressure Mean 111 111 94 Pulse Ox 97 97 Oxygen Delivery Method Room Air Room Air 12/29/21 14:05 Temperature Temperature Source Pulse Rate 88 Respiratory Rate 16 Blood Pressure 132/78 H Blood Pressure Mean 96 Pulse Ox 98 Oxygen Delivery Method Room Air MDM MDM MDM Narrative Medical decision making narrative: Psychiatric work-up was pursued. EKG demonstrates normal sinus rhythm at 92 bpm with sinus arrhythmia but no acute ST changes. His urine for drugs of abuse is positive for amphetamines and methamphetamines. It is negative for opiates. Patient is declining blood work. He states that he admittedly used methamphetamines recently because of his birthday which was yesterday. He had been on the road to recovery. He denied any suicidal ideation. He states that he suffers from insomnia and must of fallen asleep. I did speak with his sister with his permission over the phone while the patient was present. She states that he was taking a long time in the bathroom and when she called EMS, it took him 15 minutes to pull up his pants. He was groggy. At this point in time, as the patient is refusing blood work, he was told that there is a limited amount of work-up which can perform to see the cause of his syncope. He still refuses. I feel he has a capacity to sign out AGAINST MEDICAL ADVICE. He was told that he can return at any time. Currently he is awake, alert, oriented, and ambulatory. He will be signed out AGAINST MEDICAL ADVICE. He is in stable condition. Lab Data Labs: Laboratory Results - last 24 hr 12/29/21 12:50 Urine Opiates Screen NEGATIVE Urine Methadone Screen NEGATIVE Ur Barbiturates Screen NEGATIVE Ur Phencyclidine Scrn NEGATIVE Ur Amphetamines Screen POSITIVE H U Methamphetamin-MDMA POSITIVE H U Benzodiazepines Scrn NEGATIVE Urine Cocaine Screen NEGATIVE U Cannabinoids Screen NEGATIVE Ur Drug Screen Comment Discharge Plan Triage Chief Complaint: Overdose ED Provider: Anthony Alcocer Dx/Rx/DC Orders Clinical Impression: Syncope, Methamphetamine abuse, Left against medical advice Instructions: Causes of Syncope, ED Fainting, Uncertain Cause Prescriptions: No Action NK RF: 0 Primary Care Provider: David Harrison Referrals: David Harrison MD [Primary Care Provider] - 3-5 Days Disposition Disposition: Against Medical Advice
[2021-12-29 13:05] VITALS: BP 126/78; PULSE 78; RESP 18; O2SAT 97
[2021-12-29 13:10] LABS: Amphetamine Urine VISTA POSITIVE (<1000 ng/mL); Barbiturate Urine VISTA NEGATIVE (< 200 ng/mL); Benzodiazepine Urine VISTA NEGATIVE (< 200 ng/mL); Cocaine Urine VISTA NEGATIVE (< 300 ng/mL); Ecstacy Urine VISTA POSITIVE (< 500 ng/mL); Methadone Urine VISTA NEGATIVE (< 300 ng/mL); PCP Urine VISTA NEGATIVE (< 25 ng/mL); THC Urine VISTA NEGATIVE (< 50 ng/mL); Vista UDS pH Range 5
[2021-12-29 14:05] VITALS: BP 132/78; PULSE 88; RESP 16; O2SAT 98
--- NOTE | 2021-12-29 14:54 | ED.RN ---
pt is a+ox4, ambulating around department without difficulty. pt is refusing bloodwork. physician aware
[2021-12-29 15:30] VITALS: BP 129/88; PULSE 79; RESP 16; O2SAT 98
== END 2021-12-29 15:30 | disposition left against medical advice (07) ==
PROVIDERS: Emergency Provider Emergency Medicine; PCP Family Medicine; Visit Provider Emergency Medicine
DX: R55 Syncope and collapse (principal); F15.10 Other stimulant abuse, uncomplicated; F11.90 Opioid use, unspecified, uncomplicated; I49.8 Other specified cardiac arrhythmias; F17.210 Nicotine dependence, cigarettes, uncomplicated; M54.9 Dorsalgia, unspecified
CPT/HCPCS: 80307; 93005; 99284

== ENCOUNTER 2022-10-15 21:13 | Emergency (ER) | payer MEDICAID, SELFPAY ==
[2022-10-15 21:14] VITALS: TEMP 36; BMI 23.0
[2022-10-15 21:19] VITALS: BP 114/94; PULSE 127; RESP 18; O2SAT 83
[2022-10-15 21:24] VITALS: O2SAT 91
[2022-10-15 21:40] VITALS: O2SAT 99
--- NOTE | 2022-10-15 21:40 | ED.RN ---
2 MG NARCAN GIVEN INTRANASAL AT 2123. PT RESPIRATORY RATE 4, IRREGULAR SHALLOW AND LABORED. PT GASPING. DOSAGE CHECKED WITH Xochitl BENAVIDEZ RN.
--- NOTE | 2022-10-15 22:10 | EX.ED.DYSGE1 ---
HPI History of Present Illness Chief Complaint: Overdose Informant: patient Narrative Narrative: Patient is brought in by police and EMS after becoming more alert after they administered Narcan when he was unconscious. Patient denies doing any substances today; he states the last time he used anything was marijuana several days ago, but he has not used any opiates or opioids since June. 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 He states the next thing he knew there were several police and EMS personnel around him, and he was brought to the hospital. EMS states that the patient was given Narcan 2 mg intranasally, and he was more alert after this. He states he had a mild headache throughout the day, and upon waking up and being brought here he states his headache is severe and he feels very thirsty. He has low back discomfort with sciatica down his left leg that is chronic and stable and unchanged. He denies any other new symptoms or feeling like he had an injury. [facility] Medical History Chronic pain Smoker Substance use Home Medications NK 07/22/21 [History Last Taken Unknown] Allergy/AdvReac Type Severity Reaction Status Date / Time Penicillins Allergy PT UNSURE Verified 10/15/22 21:23 OF REACTION tramadol HCl [From Ultram] Allergy Rash Verified 10/15/22 21:23 meloxicam [From Mobic] AdvReac Nausea Verified 10/15/22 21:23 Family History Mother Hypertension Alcoholism Father Hypertension Prostate cancer Social History Smoking Status: Current every day smoker tobacco type: cigarettes alcohol intake: former substance use type: heroin and methamphetamine ROS ROS ED Constitutional Constitutional ED: Denies chills or fever(s) Eyes Eyes: Denies change in vision or diplopia ENT ENT ED: Denies rhinorrhea or sore throat Cardiovascular Cardiovascular: Denies chest pain or palpitations Respiratory/Chest Respiratory/Chest: Denies cough or dyspnea Gastrointestinal Gastrointestinal: Denies abdominal pain, diarrhea, nausea or vomiting Genitourinary Genitourinary ED: Denies dysuria or hematuria Musculoskeletal Musculoskeletal: Reports back pain; Denies neck pain Integumentary Denies abscess or rash Neurologic Neurologic: Reports headache(s) and paresthesias LLE; Denies weakness Psychiatric Psychiatric: Denies anxiety or suicidal thoughts EXAM Physical Exam Const Vital Signs: 10/15/22 21:14 10/15/22 21:19 10/15/22 21:24 Temperature 96.8 F L Temperature Source Temporal Pulse Rate 127 H Respiratory Rate 18 Blood Pressure 114/94 H Blood Pressure Mean 100 Pulse Ox 83 91 Oxygen Delivery Method Nasal Cannula Nasal Cannula Oxygen Flow Rate (L/min) 2 4 10/15/22 21:40 Temperature Temperature Source Pulse Rate Respiratory Rate Blood Pressure Blood Pressure Mean Pulse Ox 99 Oxygen Delivery Method Nasal Cannula Oxygen Flow Rate (L/min) 4 Positive well nourished and well developed General Appearance ED: well developed and NAD HEENT Reports TM's clear and moist mucous membranes HEENT Narrative: No hemotympanum. No CSF otorhinorrhea. No signs of any head or facial injury. No vasquez sign. normocephalic and atraumatic Tympanic Membrane ED: Yes TM's clear Eyes PERRL and EOMs intact bilaterally Neck full ROM and supple Chest Wall inspection of chest normal and palpation of chest normal Resp normal respiratory effort and clear to auscultation bilaterally Cardio regular rate, regular rhythm and no murmurs Rate: other Other Details: Mild tachycardia, between 100-110, regular GI non-tender and non-distended Auscultation: normoactive bowel sounds Palpation: soft Back/Spine no CVA tenderness General Back: other FROM Extremity normal to inspection General Extremety ED: Negative for edema, pulses abnormal or tenderness General Extremity: Negative for edema or pulses abnormal Neuro oriented x3, CN's II-XII intact bilaterally and no sensory deficits noted Sensorium / Orientation: awake and alert Motor Exam: strength 5/5 throughout Skin no rashes or lesions noted and no wounds MDM MDM MDM Narrative Medical decision making narrative: Patient has pinpoint pupils and he is keenly alert and conversive, oriented x3 and appropriate. Patient states he did not pass out, and initially indicates that he was just exhausted and sat down and possibly went to sleep. When I asked him if he thinks he may have just went to sleep he states no, and his history is somewhat confusing here. I advised the patient that if he was not using drugs and simply woke up with Narcan, we should perform a work-up to rule out emergent causes such as intracranial hemorrhage, cardiac etiologies, metabolic derangement and/or dehydration, which is not an exclusive list. He states he refuses all of this, and just wants to get a drink of water and leave. He understands the risk of refusing work-up given the risk of having any of the above diagnoses, at the least. The patient had eloped/left prior to getting his discharge paperwork and signing AMA form. Discharge Plan Triage Chief Complaint: Overdose ED Provider: Chadwick Madison Dx/Rx/DC Orders Clinical Impression: Syncope, Headache Prescriptions: No Action NK Primary Care Provider: David Harrison Referrals: David Harrison MD [Primary Care Provider] - As soon as possible (you may return to ER for reevaluation at any time if you change your mind) Disposition Disposition: Against Medical Advice Capacity Capacity Assessment Tool Can the patient make a choice & communicate that choice?: Yes Can the patient understand benefits, risks and alternatives?: Yes Can the patient make a logical, rational choice?: Yes Is the choice the patient makes consistent w/ their values?: Yes Is there an impending, emergent risk to the patient?: Unable to Determine Does the patient have an Advance Directive?: No Is there a Surrogate Available?: No
--- NOTE | 2022-10-15 22:37 | ED.RN ---
PT VERBALIZES THERE IS NOTHING WRONG I AM JUST TIRED. HE ALSO STATES I DO NOT WANT TO STAY HERE I WANT TO GO HOME AND YOU CANNOT HOLD ME HERE. PT DENIES USING DRUGS. PT EDUCATED BY THIS RN ON WHY NARCAN WAS GIVEN FOR LOW RESPIRATORY RATE AND LABORED ABNORMAL BREATHING. PT REQUESTS A LEAVING HOSPITAL AGAINST MEDICAL ADVICE ASSUMPTION OF RISK RELEASE FORM TO DR. TRIANA. FORM PRINTED ALONG WITH DISCHARGE PAPERWORK. AT 2230 THIS RN WENT TO PT ROOM TO GIVE PAPERWORK AND FORM. PT GONE FROM ROOM.
== END 2022-10-15 22:45 | disposition left against medical advice (07) ==
PROVIDERS: Emergency Provider Emergency Medicine; PCP Family Medicine; Visit Provider Emergency Medicine
DX: R55 Syncope and collapse (principal); R51.9 Headache, unspecified; F11.90 Opioid use, unspecified, uncomplicated; F17.210 Nicotine dependence, cigarettes, uncomplicated
CPT/HCPCS: 99284; A4216

== ENCOUNTER 2022-10-21 21:34 | Outpatient (REF) | payer SELFPAY ==
[2022-10-21 21:36] VITALS: BP 93/72; PULSE 124; RESP 18; TEMP 36; O2SAT 91; BMI 23.0
--- NOTE | 2022-10-21 21:49 | CT_ITS ---
INDICATION: confusion EXAMINATION: CT BRAIN - CT Head or Brain W/O Contrast Injection TECHNIQUE: Multiple axial images were obtained of the head without intravenous contrast. A radiation dose optimization technique was used for this scan. IV Contrast dosage and agent: None. COMPARISON: 10/16/17 FINDINGS: BRAIN PARENCHYMA: No intra- or extra-axial hemorrhage. No evidence of acute infarct. No intracranial mass or mass effect. Unremarkable white matter for age. There is preservation of the purvis/white matter interface. Posterior fossa structures are unremarkable. CSF SPACES: Cerebral volume appropriate for age. No hydrocephalus. Basal cisterns are patent. CALVARIUM, SKULL BASE, PARANASAL SINUSES AND MASTOID AIR CELLS: No acute osseous finding. Mild scattered mucoperiosteal thickening.. Congenital osseous leftward nasal septal deviation. Mastoid air cells are clear. ORBITS: Both globes, extraocular muscles, optic nerves and retrobulbar fat appear unremarkable. ASPECTS Score for Acute Strokes: 10 CT/Brain/Head without Contrast IMPRESSION: No CT evidence of acute intracranial hemorrhage or injury. Mild paranasal sinus disease. Electronically Signed: Matheus Noel MD at 23:00 EST ,
--- NOTE | 2022-10-21 21:49 | EKG12_ITS ---
Test Reason : Blood Pressure : / mmHG Vent. Rate : 121 BPM Atrial Rate : 121 BPM P-R Int : 112 ms QRS Dur : 096 ms QT Int : 316 ms P-R-T Axes : 080 068 070 degrees QTc Int : 448 ms Sinus tachycardia Possible Left atrial enlargement Incomplete right bundle branch block Borderline ECG Confirmed by MORENA OSORIO, BETITO ([id number]), magazine editor ROBERTH WALLACE ([id number]) on 10/24/2022 8:48:20 AM Referred By: Confirmed By:BETITO BERG MD
--- NOTE | 2022-10-21 21:50 | EX.ED.SAOD ---
HPI History of Present Illness Chief Complaint: Mental Health Narrative Narrative: 46-year-old male presenting via EMS. 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 Patient is not sure what happened. He states he was walking home from his job. He states he smoked marijuana today but did no other drugs. He states he tried to clean up his act. He does have a bloody nose and states that he must of popped a blood vessel. He is not sure if he fell or hit his head. He does not report any pain except for chronic back pain. He states has been otherwise healthy. He is not on any blood thinners. [facility] Medical History Chronic pain Smoker Substance use Home Medications NK 07/22/21 [History Last Taken Unknown] Allergy/AdvReac Type Severity Reaction Status Date / Time Penicillins Allergy PT UNSURE Verified 10/21/22 21:35 OF REACTION tramadol HCl [From Ultram] Allergy Rash Verified 10/21/22 21:35 meloxicam [From Mobic] AdvReac Nausea Verified 10/21/22 21:35 Family History Mother Hypertension Alcoholism Father Hypertension Prostate cancer Social History Smoking Status: Current every day smoker tobacco type: cigarettes alcohol intake: former substance use type: heroin and methamphetamine ROS ROS ED Constitutional Constitutional ED: Denies chills or fever(s) Eyes Eyes: Denies change in vision or diplopia ENT ENT ED: Reports other Details: Epistaxis ; Denies rhinorrhea or sore throat Cardiovascular Cardiovascular: Denies chest pain or palpitations Respiratory/Chest Respiratory/Chest: Denies cough or dyspnea Gastrointestinal Gastrointestinal: Denies abdominal pain or nausea Genitourinary Genitourinary ED: Denies dysuria Musculoskeletal Musculoskeletal: Denies arthralgias or back pain Integumentary Denies abscess Neurologic Neurologic: Denies headache(s) Psychiatric Psychiatric: Denies anxiety or depression EXAM Physical Exam Const Vital Signs: 10/21/22 21:36 Temperature 96.8 F L Temperature Source Temporal Pulse Rate 124 H Respiratory Rate 18 Blood Pressure 93/72 Blood Pressure Mean 79 Pulse Ox 91 Oxygen Delivery Method Room Air Positive unkempt General Appearance ED: unkempt and NAD; Negative for pallor HEENT Reports moist mucous membranes normocephalic and atraumatic; Negative for Baptiste's sign Face and Sinus: face symmetric External Ear: mastoids normal Tympanic Membrane ED: Yes TM's normal bilaterally Mouth ED: Yes lips normal, Yes tongue normal and Yes moist mucous membranes normal Mouth: lips normal and tongue normal Eyes PERRL and EOMs intact bilaterally Chest Wall inspection of chest normal and palpation of chest normal Chest Narrative: Equal symmetric breath sounds and chest wall rise Resp normal respiratory effort Auscultation: Negative for rales, rhonchi or wheezes Cardio regular rhythm Rate: tachycardic GI soft to palpation Extremity General Extremety ED: Negative for edema or tenderness General Extremity: Negative for edema Neuro oriented x3 and CN's II-XII intact bilaterally Sensorium / Orientation: alert Motor Exam: strength 5/5 throughout Psych Psych Narrative: Appears to be tired Appearance: unkempt Skin General Skin Exam: Negative for jaundice or pallor MDM MDM MDM Narrative Medical decision making narrative: Patient presenting with altered mental status. He was found to the yard near his worksite. He states he smoked marijuana earlier and denies any other drug use. He denies alcohol abuse. I reviewed the medical record and saw that he was here recently for altered mental status and had been given Narcan in the field. He was awake and alert upon evaluation in the ER and signed out AGAINST MEDICAL ADVICE and went to snf. Today initially he is very tired and he falls asleep while asking questions. His pupils are pinpoint. He is slightly hypotensive. He is 91% on room air however his hands are very cold because of his leg outside and is currently 29 degrees. Patient does also have this for the right nare which is not actively bleeding and there is dried blood on his face. I did obtain blood work and imaging. CBC and CMP are unremarkable. EtOH negative. EKG on my interpretation shows normal sinus rhythm with a ventricular rate of 121 bpm without sign of ischemic change or dysrhythmia. Chest x-ray shows no acute cardiopulmonary process. The radiologist interprets this and agrees. CT of the brain is negative for intracranial hemorrhage or other acute findings. Patient reevaluated at 11:05 PM and he is awake and alert eating a sandwich and has had 4 cups of water. He appears to be doing well. I suspect likely he was using opioids but he has not required any Narcan. Urine drug screen positive for methadone, amphetamines, MDMA, cannabinoids. He does not appear that he is prescribed amphetamines or methadone. Since the patient is improved and is work-up is ultimately normal I think he is stable for discharge into custody. Impression: 1. Amphetamine abuse 2. Altered mental status resolved 3. Methadone abuse 4. MDMA abuse 5. Epistaxis?resolved Lab Data Labs: Laboratory Results - last 24 hr 10/21/22 10/21/22 10/21/22 22:20 22:20 22:20 WBC 8.6 RBC 4.62 Hgb 13.6 Hct 39.9 L MCV 86.4 MCH 29.4 MCHC 34.1 RDW Std Deviation 40.8 RDW Coeff of [place] 13.1 Plt Count 218 MPV 8.6 Immature Gran % (Auto) 0.500 Neut % (Auto) 83.4 H Lymph % (Auto) 9.6 L [place] % (Auto) 6.3 Eos % (Auto) 0.0 Baso % (Auto) 0.2 Absolute Neuts (auto) 7.2 Absolute Lymphs (auto) 0.83 Nucleated RBC % 0 Sodium 137 Potassium 4.5 Chloride 102 Carbon Dioxide 27.0 Anion Gap 8 BUN 14 Creatinine 1.02 Estim Creat Clear Calc 96.81 Est GFR (MDRD) Af Amer 101 Est GFR (MDRD) Non-Af 84 BUN/Creatinine Ratio 13.7 Glucose 91 Calcium 8.1 L Total Bilirubin 0.20 AST 40 H ALT 40 Alkaline Phosphatase 92 Total Protein 7.2 Albumin 3.4 Globulin 3.8 Albumin/Globulin Ratio 0.9 Urine Opiates Screen Urine Methadone Screen Ur Barbiturates Screen Ur Phencyclidine Scrn Ur Amphetamines Screen MDMA (Ecstasy) Screen U Benzodiazepines Scrn Urine Cocaine Screen U Cannabinoids Screen Ur Drug Screen Comment Ethyl Alcohol < 3.0 10/21/22 23:02 WBC RBC Hgb Hct MCV MCH MCHC RDW Std Deviation RDW Coeff of [place] Plt Count MPV Immature Gran % (Auto) Neut % (Auto) Lymph % (Auto) [place] % (Auto) Eos % (Auto) Baso % (Auto) Absolute Neuts (auto) Absolute Lymphs (auto) Nucleated RBC % Sodium Potassium Chloride Carbon Dioxide Anion Gap BUN Creatinine Estim Creat Clear Calc Est GFR (MDRD) Af Amer Est GFR (MDRD) Non-Af BUN/Creatinine Ratio Glucose Calcium Total Bilirubin AST ALT Alkaline Phosphatase Total Protein Albumin Globulin Albumin/Globulin Ratio Urine Opiates Screen NEGATIVE Urine Methadone Screen POSITIVE H Ur Barbiturates Screen NEGATIVE Ur Phencyclidine Scrn NEGATIVE Ur Amphetamines Screen POSITIVE H MDMA (Ecstasy) Screen POSITIVE H U Benzodiazepines Scrn NEGATIVE Urine Cocaine Screen NEGATIVE U Cannabinoids Screen POSITIVE H Ur Drug Screen Comment Ethyl Alcohol Radiography Diagnostic Testing: Clinical Impression(s) from Imaging Studies Brain CT 10/21/22 21:49 IMPRESSION: No CT evidence of acute intracranial hemorrhage or injury. Mild paranasal sinus disease. Electronically Signed: Matheus Noel MD at 23:00 EST Reading Location ID and State: [facility] / [place] Tel , Service support , Chest X-Ray 10/21/22 22:32 IMPRESSION: Mild right basilar atelectasis or scarring. No radiographic evidence of consolidative airspace disease or pulmonary edema. Electronically Signed: Matheus Noel MD at 22:51 EST , Discharge Plan Triage Chief Complaint: Mental Health ED Provider: Amadeo Álvarez Dx/Rx/DC Orders Prescriptions: No Action NK Primary Care Provider: David Harrison Referrals: David Harrison MD [Primary Care Provider] -
--- NOTE | 2022-10-21 22:32 | RAD_ITS ---
INDICATION: altered mental status EXAMINATION/TECHNIQUE: X-RAY - XR Chest 1 View COMPARISON: None. FINDINGS: LINES/DEVICES: None. LUNGS: Linear atelectasis or scarring in the right lung base. No consolidation, edema or effusion. No pneumothorax. MEDIASTINUM AND CARDIOVASCULAR STRUCTURES: Cardiac silhouette not enlarged. BONES AND SOFT TISSUES: Unremarkable. RAD/Chest 1 View (Portable) IMPRESSION: Mild right basilar atelectasis or scarring. No radiographic evidence of consolidative airspace disease or pulmonary edema. Electronically Signed: Matheus Noel MD at 22:51 EST ,
[2022-10-21 22:51] LABS: Absolute Lymphocyte Count 0.83 X10^3/uL (0.83-4.51); Absolute Neutrophil Count 7.2 X10^3/uL (2.0-7.7); Basophil# 0.02 X10^3/uL; Basophil% 0.2 % (0-1); Hematocrit 39.9 % (40-54); Hemoglobin 13.6 g/dL (13.0-16.5); Lymphocyte # 0.83 X10^3/ul (0.83-4.51); Lymphocyte % 9.6 % (19-41); Mean Corp Hgb Conc 34.1 g/dL (32-36); Mean Corpuscular Hgb 29.4 pg (27.0-32.0); Mean Corpuscular Volume 86.4 fL (80-94); Mean Platelet Vol. 8.6 fl (6.2-12.0); Monocyte# 0.54 X10^3/uL; Monocyte% 6.3 % (0-10); NRBC Flagged by Analyzer 0 % (0-5); Neutrophil % 83.4 % (47-70); Platelet Count 218 K/mm3 (150-450); RBC Distribution Width CV 13.1 % (11.6-14.6); RBC Distribution Width SD 40.8 fl (35.1-43.9); Red Blood Count 4.62 M/mm3 (4.6-6.2); White Blood Count 8.6 K/mm3 (4.4-11.0)
[2022-10-21 23:00] LABS: Alcohol, Blood (Medical)-Serum < 3.0 mg/dL
[2022-10-21 23:06] LABS: ALB/GLOB Ratio 0.9 RATIO (0.9-2.4); AST(SGOT) 40 U/L (15-37); Alanine Aminotransfer ALT/SGPT 40 U/L (16-61); Albumin, Serum 3.4 g/dL (3.2-5.0); Alkaline Phosphatase 92 U/L (45-117); Anion Gap 8 (5-15); BUN 14 mg/dL (7-18); BUN/Creat Ratio 13.7 RATIO (10-20); Calcium,Total 8.1 mg/dL (8.5-10.1); Chloride 102 mmol/L (98-107); Creatinine, Serum 1.02 mg/dL (0.70-1.30); EST Glomerular Filtration Rate 84 mL/min (>60); Est Glom Filt Rate - Afr Amer 101 mL/min (>60); Estimated Creatinine Clearance 96.81 ml/min; Globulin 3.8 g/dL (2.2-4.2); Glucose 91 mg/dL (74-106); Potassium 4.5 mmol/L (3.5-5.1); Protein, Total 7.2 g/dL (6.4-8.2); Sodium Level 137 mmol/L (136-145)
[2022-10-21 23:27] LABS: Amphetamine Urine VISTA POSITIVE (<1000 ng/mL); Barbiturate Urine VISTA NEGATIVE (< 200 ng/mL); Benzodiazepine Urine VISTA NEGATIVE (< 200 ng/mL); Cocaine Urine VISTA NEGATIVE (< 300 ng/mL); Ecstacy Urine VISTA POSITIVE (< 500 ng/mL); Methadone Urine VISTA POSITIVE (< 300 ng/mL); PCP Urine VISTA NEGATIVE (< 25 ng/mL); THC Urine VISTA POSITIVE (< 50 ng/mL); Vista UDS pH Range 6
== END 2022-10-21 23:44 ==
LOC: ED 21:34
PROVIDERS: PCP Family Medicine; Visit Provider Student in an Organized Health Care Education/Training Program
DX: R41.82 Altered mental status, unspecified (principal); F15.10 Other stimulant abuse, uncomplicated; F11.10 Opioid abuse, uncomplicated; M54.9 Dorsalgia, unspecified; G89.29 Other chronic pain; F17.210 Nicotine dependence, cigarettes, uncomplicated
CPT/HCPCS: 70450; 71045; 80053; 80307; 82077; 85025; 93005

== ENCOUNTER 2023-11-14 12:58 | Emergency (ER) | payer MEDICAID, SELFPAY ==
[2023-11-14 12:59] VITALS: BP 127/76; PULSE 101; RESP 18; TEMP 36.8; O2SAT 100; BMI 27.5
--- NOTE | 2023-11-14 14:22 | EDS_ITS ---
HPI History of Present Illness Chief Complaint: Back Informant: patient Narrative Narrative: Patient presents with back pain. Patient states he has had problems with his back for years. It was recommended he have surgery by Dr. Moralez about back about 9 years ago. But patient states he had a 2-year-old at the time and was very busy and could not have that done. He has had back pain ever since. It flares up now and then. Will radiate down the leg and normally down the left. He just got out of [facility] about 3 to 4 weeks ago. He was there for 9 months. He is at a long term house now. He states the bed is extremely soft. He tried sleeping on the ground. He saw chiropractor last week. He was told his muscles were too tight to really adjust him a lot. He states he has pain in the left lower back to the left buttock and sometimes down the left leg. No weakness. He is able to move his bowels and urinate normally. No fevers or chills. He is eating and drinking normally. He has no history of trauma. He has a history of narcotic use but has not used for a long time and does not inject. He does not want narcotics for this reason. [facility] Medical History Chronic pain Smoker Substance use Home Medications cyclobenzaprine 10 mg tablet 10 mg PO TID PRN Muscle Spasm #12 TABLETS 11/14/23 [Rx Last Taken Unknown] prednisone 20 mg tablet 60 mg (3 x 20 mg) PO DAILY #15 TABLETS 11/14/23 [Rx Last Taken Unknown] Allergy/AdvReac Type Severity Reaction Status Date / Time Penicillins Allergy PT UNSURE Verified 10/21/22 21:35 OF REACTION tramadol HCl [From Ultram] Allergy Rash Verified 10/21/22 21:35 meloxicam [From Mobic] AdvReac Nausea Verified 10/21/22 21:35 Family History Mother Hypertension Alcoholism Father Hypertension Prostate cancer Social History Smoking Status: Current every day smoker tobacco type: cigarettes alcohol intake: former substance use type: heroin and methamphetamine ROS ROS ED ROS Narrative A complete review of systems was performed and is negative except as documented in the history of present illness. Some specific details below. Constitutional: No recent fevers or chills. No rigors. Patient has not generally felt ill. ENT: No sinus pressure or pain. No nasal discharge. CV: No chest pain, pressure or aching. No palpitations or irregular beats. Patient has not been presyncopal or syncopal. Respiratory: No trouble breathing. No cough. No wheezing. No sputum production. No pain with breathing. GI: No abdominal pain. No nausea vomiting diarrhea. No blood in stool. No loss of bowel control. No history of AAA. He is able to eat and drink without difficulty. : No frequency dysuria or hematuria. No incontinence or urinary retention. Musculoskeletal: No recent trauma. No swelling. Please see history of present illness. Skin: No rash. No diaphoresis. No vesicles. Neuro: No weakness or numbness. But he does have pain radiating down the left leg. It is hard for him to localize where this goes when it is present. It is hard to isolate this to a single nerve root. Please see history of present illness also. Endocrine: No polyuria or polydipsia. EXAM Physical Exam Narrative Exam Narrative: CONSTITUTIONAL: Patient is nontoxic in appearance. The patient looks comfortable. Work of breathing looks normal. He prefers to sit on the chair but he is able to get up and walk to the bed without difficulties. HEENT: No notable trauma. Mucous membranes moist. No sinus tenderness. No sign of dental infection. EYES: No conjunctival injection. No pallor. NECK: No meningismus. No JVD. CARDIOVASCULAR: Regular rate. Regular rhythm. No notable murmur. No JVD. RESPIRATORY: No respiratory distress. Breathing is unlabored. No wheezes. No rhonchi. No rales. No pain with a deep breath. GASTROINTESTINAL: Not distended. Bowel sounds are normal. No tenderness. No guarding. No rebound. No palpable mass. No bruit. GENITOURINARY: No tenderness over the bladder. No CVA tenderness. MUSCULOSKELETAL: Atraumatic. No peripheral edema. No cord. No tenderness along the deep venous system. No asymmetry. Distal pulses are intact. He does have some soreness along his left lower paraspinal and he has tenderness in his left sciatic notch area in the buttock. But no rashes are noted. NEUROLOGICAL: Patient is alert and oriented. No focal deficit noted. Patient can stand on toes and heels and do squats although that is uncomfortable for him. Patellar reflex 1+ bilaterally and equal Achilles reflex 1+ bilaterally and equally. SKIN: No noted rashes. No diaphoresis. No vesicles noted. No notable pallor. PSYCHIATRIC: Patient is calm. Mood is appropriate. Const Vital Signs: 11/14/23 12:59 Temperature 98.2 F Temperature Source Temporal Pulse Rate 101 H Respiratory Rate 18 Blood Pressure 127/76 H Blood Pressure Mean 93 Pulse Ox 100 Oxygen Delivery Method Room Air MDM MDM MDM Narrative Medical decision making narrative: I am not getting history or exam findings consistent with neurologic deficit at this time. But I am concerned about his significant radiation. He has had this before. He states he has responded to a shot of Toradol and steroids. We will do this here. I will write for some muscle relaxants as I think he does have a lot of tightening of the muscles. If he develops weakness, difficulty passing urine or her stool incontinence or other findings he should return. If he develops fevers he should return. Discharge Plan Triage Chief Complaint: Back ED Provider: Shahriar Betancourt Dx/Rx/DC Orders Clinical Impression: Left sided sciatica, Lower back pain Instructions: ED Sciatica Prescriptions: New cyclobenzaprine [cyclobenzaprine] 10 mg tablet 10 mg PO TID PRN (Reason: Muscle Spasm) Qty: 12 0RF prednisone 20 mg tablet 60 mg PO DAILY Qty: 15 0RF Primary Care Provider: David Harrison Referrals: Jim Mccarthy DO [Med Staff - Active Staff] - 1 Week if not improving David Harrison MD [Primary Care Provider] - 3-5 Days if not improving Disposition Disposition: Home, Self Care
[2023-11-14] MEDS: Ketorolac 60 MG/2 ML Vial IM (14:36)
[2023-11-14 14:43] VITALS: BP 126/74; PULSE 81; RESP 15; O2SAT 98
== END 2023-11-14 14:44 | disposition home or self-care (01) ==
PROVIDERS: Emergency Provider Emergency Medicine; PCP Family Medicine; Visit Provider Emergency Medicine
DX: M54.42 Lumbago with sciatica, left side (principal); F17.200 Nicotine dependence, unspecified, uncomplicated; F11.90 Opioid use, unspecified, uncomplicated
CPT/HCPCS: 96372; 99282